=== PATIENT | female | born 1945 | race Caucasian/White ===

== ENCOUNTER 2016-09-10 10:33 | Emergency (ER) | payer MEDICARE, MEDICAID ==
[~2016-09-10] VITALS: Ht 157.5 cm; Wt 62.0 kg
[~2016-09-10 10:33] MED LIST: ASCO500C6 PO; CHOL100026 GT; DEXL60CA3 PO; DIATR MEGLU/DIATRIZOATE SOLN 30ML ONE; FERR-63 PO; FURO20TA4 PO; LACT10SO6 PO; MAGN400C PO; MEGE400O PO; MIRT15TA6 PO; SPIR25TA4 PO; ZINC MT
[2016-09-10 11:10] LABS: BASOPHILS % 0.7 % (0.0-2.0); EOSINOPHILS % 0.9 % (0.0-5.0); HEMATOCRIT. 47.2 % (36.0-48.0); HEMOGLOBIN. 16.3 g/dL (12.0-16.0); LYMPHOCYTES % 13.6 % (20.0-50.0); MEAN CORPUSCULAR HEMOGLOBIN 37.5 pg (28.0-32.0); MEAN CORPUSCULAR VOLUME 108.6 fL (81.0-99.0); MEAN PLATELET VOLUME 9.8 fl (7.4-10.4); MONOCYTES % 12.2 % (2.0-8.0); NEUTROPHILS % 72.6 % (40.0-76.0); PLATELET 144 x1000/uL (130-400); RED BLOOD CELL COUNT 4.35 mill/uL (4.2-5.4)
[2016-09-10 11:17] LABS: CHLORIDE 118 mEq/L (98-107)
[2016-09-10 11:19] LABS: INR 1.3; PROTHROMBIN TIME 13.4 sec
[2016-09-10 11:27] LABS: CARBON DIOXIDE 27 mEq/L (21-32)
[2016-09-10] MEDS ORDERED: SODIUM BICARBONATE 4% (2.4MEQ) 5ML VIAL IV ONE (13:49)
[2016-09-10] MEDS ORDERED: LIDOCAINE HCL 1% 20ML VIAL (Pyxis) INJ ONE (13:49)
[2016-09-10 18:54] VITALS: BP 147/82
== END 2016-09-10 20:15 | disposition home or self-care (01) ==
LOC: ER 13:14
DX: K94.23 Gastrostomy malfunction (principal); R03.0 Elevated blood-pressure reading, without diagnosis of hypertension; I69.320 Aphasia following cerebral infarction; I69.398 Other sequelae of cerebral infarction; M24.542 Contracture, left hand; J44.9 Chronic obstructive pulmonary disease, unspecified; Z79.899 Other long term (current) drug therapy; Z86.19 Personal history of other infectious and parasitic diseases
CPT/HCPCS: 36415; 36598; 49450; 80053; 85025; 85610; 99284; J3490; Q9963

== ENCOUNTER 2017-03-28 18:34 | Inpatient (IN) | payer MEDICARE, MEDICAID ==
[~2017-03-28] VITALS: Ht 162.6 cm; Wt 64.4 kg
[~2017-03-28 18:34] MED LIST changes: -CHOL100026 GT; +CHOL100044 GT; -DIATR MEGLU/DIATRIZOATE SOLN 30ML ONE; +ETOMIDATE 2MG/ML 10ML VIAL IV ONE; +SUCCINYLCHOLINE CHLORIDE 200MG/10ML VIAL IV ONE
[2017-03-28] MEDS ORDERED: IPRATROPIUM BROMIDE (0.02%) 0.5MG/2.5ML NEB HHN STA (18:37)
[2017-03-28] MEDS ORDERED: ALBUTEROL (0.083%) 2.5MG/3ML NEB HHN STA (18:37)
[2017-03-28] MEDS ORDERED: SODIUM CHLORIDE 0.9% 1,000 ML IV ONE (18:37)
[2017-03-28] MEDS ORDERED: AZITHROMYCIN 500 MG in DEXT 5% WATER 250 ML IV ONE (18:45)
[2017-03-28] MEDS ORDERED: CEFTRIAXONE 1 G PREMIX 50 ML IV ONE (18:45)
[2017-03-28 19:03] LABS: BG BASE EXCESS -0.8 mmol/L (-2.0-2.0); BG CARBOXYHEMOGLOBIN 1.2 % (0.5-1.5); BG DEOXYHEMOGLOBIN 2.7 % (0.0-5.0); BG FRACTION INSPIRED OXYGEN 100; BG HCO3 ACT 22.7 mmol/L (22.0-26.0); BG METHEMOGLOBIN 0.3 % (0.0-1.5); BG OXYGEN SATURATION 97.3 % (92.0-98.5); BG OXYHEMOGLOBIN 95.8 % (94.0-97.0); BG PCO2 34.2 mmHg (35.0-45.0); BG PH 7.439 (7.350-7.450); BG PO2 93.7 mmHg (75.0-100.0); BG SAMPLE SITE RIGHT RADIAL; BG TOTAL HEMOGLOBIN 14.3 g/dL (12.0-18.0); BG VENT MODE MASK - NRB
[2017-03-28] MEDS ORDERED: SUCCINYLCHOLINE CHLORIDE 200MG/10ML VIAL IV ONE (19:15)
[2017-03-28] MEDS ORDERED: ETOMIDATE 2MG/ML 10ML VIAL IV ONE (19:15)
[2017-03-28] MEDS ORDERED: PROPOFOL 10MG/ML 100ML 100 ML IV ONE (19:15)
[2017-03-28 19:22] LABS: HEMATOCRIT. 41.7 % (36.0-48.0); HEMOGLOBIN. 13.8 g/dL (12.0-16.0); MEAN CORPUSCULAR HEMOGLOBIN 42.5 pg (28.0-32.0); MEAN CORPUSCULAR VOLUME 128.6 fL (81.0-99.0); MEAN PLATELET VOLUME 10.1 fl (7.4-10.4); PLATELET 122 x1000/uL (130-400); RED BLOOD CELL COUNT 3.24 mill/uL (4.2-5.4); RED CELL DISTRIBUTION WIDTH 15.1 % (11.6-14.6)
[2017-03-28 19:25] LABS: INR 1.7; PROTHROMBIN TIME 17.8 sec (9.4-11.6)
[2017-03-28 19:34] LABS: CARBON DIOXIDE 24 mEq/L (21-32); CHLORIDE 108 mEq/L (98-107); ETHANOL BLOOD < 10 mg/dL
[2017-03-28] MEDS ORDERED: ASPIRIN 300MG SUPP PR ONE (19:45)
[2017-03-28] MEDS ORDERED: SODIUM CHLORIDE 0.9% 1000ML BAG (SEPSIS BOLUS) IV ONE (19:45)
[2017-03-28 20:38] LABS: BG BASE EXCESS -4.7 mmol/L (-2.0-2.0); BG CARBOXYHEMOGLOBIN 0.3 % (0.5-1.5); BG DEOXYHEMOGLOBIN 0.7 % (0.0-5.0); BG FRACTION INSPIRED OXYGEN 100; BG HCO3 ACT 20.9 mmol/L (22.0-26.0); BG METHEMOGLOBIN 0.7 % (0.0-1.5); BG OXYGEN SATURATION 99.3 % (92.0-98.5); BG OXYHEMOGLOBIN 98.3 % (94.0-97.0); BG PCO2 40.8 mmHg (35.0-45.0); BG PH 7.328 (7.350-7.450); BG PO2 259.2 mmHg (75.0-100.0); BG SAMPLE SITE RIGHT FEMORAL; BG TIDAL VOLUME(mL) 400 mL; BG TOTAL HEMOGLOBIN 11.8 g/dL (12.0-18.0); BG VENT MODE VENT - A/C; BG VENT RATE 12 set
[2017-03-28 20:55] LABS: CLARITY URINE CLEAR (CLEAR); COLOR URINE DARK YELLOW (YELLOW); KETONES URINE NEGATIVE (NEGATIVE); LEUKOCYTE ESTERASE URINE TRACE (NEGATIVE); NITRITE URINE POSITIVE (NEGATIVE); OCCULT BLOOD URINE TRACE (NEGATIVE); PH URINE 5.5 (4.5-8.0); PROTEIN URINE NEGATIVE (NEGATIVE); SPECIFIC GRAVITY URINE 1.027 (1.005-1.030)
[2017-03-28 21:03] LABS: PLATELET ESTIMATE SLIGHTLY DECREASED
[2017-03-28 21:13] LABS: *AMPHETAMINES SCREEN URINE NEGATIVE (NEGATIVE); *BARBITURATES SCREEN URINE NEGATIVE (NEGATIVE); *BENZODIAZEPINES SCREEN URINE NEGATIVE (NEGATIVE); *COCAINE SCREEN URINE NEGATIVE (NEGATIVE); CANNABINOID URINE SCREEN NEGATIVE (NEGATIVE); METHADONE URINE SCREEN NEGATIVE (NEGATIVE); OPIATES URINE SCREEN NEGATIVE (NEGATIVE); PHENCYCLIDINE URINE SCREEN NEGATIVE (NEGATIVE)
[2017-03-28 23:15] VITALS: BP 88/62
[2017-03-29] VITALS (62 sets, daily range): BP systolic 39–191; BP diastolic 21–111
[2017-03-29] MEDS ORDERED: ONDANSETRON HCL 4MG/2ML VIAL IV PRN (00:15)
[2017-03-29] MEDS: DEXT 5%/0.9% NACL 1,000 ML IV SCH ×2 (00:32→17:13)
[2017-03-29] MEDS: PIPERACILLIN/TAZ 3.375G PREMIX 50 ML IV SCH ×5 (01:07→23:32)
[2017-03-29] MEDS ORDERED: SODIUM CHLORIDE 0.9% 500 ML IV SCH (02:45)
[2017-03-29] MEDS ORDERED: PIPERACILLIN/TAZOBACTAM 2.25 G in DEXTROSE 5% WATER 50 ML IV SCH (06:00)
[2017-03-29 06:20] LABS: HEMATOCRIT. 37.9 % (36.0-48.0); HEMOGLOBIN. 12.4 g/dL (12.0-16.0); MEAN CORPUSCULAR HEMOGLOBIN 43.3 pg (28.0-32.0); MEAN CORPUSCULAR VOLUME 131.9 fL (81.0-99.0); PLATELET 106 x1000/uL (130-400); RED BLOOD CELL COUNT 2.87 mill/uL (4.2-5.4); RED CELL DISTRIBUTION WIDTH 15.3 % (11.6-14.6)
[2017-03-29] MEDS: NOREPINEPHRINE 4 MG in DEXT 5% WATER 246 ML IV PRN (06:46)
[2017-03-29 08:05] LABS: BG BASE EXCESS -5.4 mmol/L (-2.0-2.0); BG CARBOXYHEMOGLOBIN 1.4 % (0.5-1.5); BG DEOXYHEMOGLOBIN 1.6 % (0.0-5.0); BG FRACTION INSPIRED OXYGEN 50; BG HCO3 ACT 18.2 mmol/L (22.0-26.0); BG METHEMOGLOBIN 0.3 % (0.0-1.5); BG OXYGEN SATURATION 98.4 % (92.0-98.5); BG OXYHEMOGLOBIN 96.7 % (94.0-97.0); BG PCO2 30.4 mmHg (35.0-45.0); BG PH 7.395 (7.350-7.450); BG PO2 105.4 mmHg (75.0-100.0); BG SAMPLE SITE RIGHT RADIAL; BG TIDAL VOLUME(mL) 400 mL; BG TOTAL HEMOGLOBIN 14.6 g/dL (12.0-18.0); BG VENT MODE VENT - A/C; BG VENT RATE 12 set
[2017-03-29] MEDS ORDERED: MAGNESIUM OXIDE 400MG TABLET PO SCH (09:00)
[2017-03-29 13:43] LABS: PLATELET ESTIMATE SLIGHTLY DECREASED
[2017-03-29 14:12] LABS: PHOSPHORUS 2.6 mg/dL (2.5-4.9)
[2017-03-30] VITALS (99 sets, daily range): BP systolic 71–145; BP diastolic 34–105
[2017-03-30] MEDS: IPRATROPIUM/ALBUTEROL 0.5-3(2.5)MG/3ML NEB HHN SCH ×6 (00:12→20:25)
[2017-03-30] MEDS: PIPERACILLIN/TAZ 3.375G PREMIX 50 ML IV SCH ×2 (05:25→12:37)
[2017-03-30] MEDS: DEXT 5%/0.9% NACL 1,000 ML IV SCH (05:26)
[2017-03-30 05:40] LABS: HEMATOCRIT. 29.3 % (36.0-48.0); HEMOGLOBIN. 9.8 g/dL (12.0-16.0); MEAN CORPUSCULAR HEMOGLOBIN 43.8 pg (28.0-32.0); MEAN PLATELET VOLUME 9.2 fl (7.4-10.4); PLATELET 87 x1000/uL (130-400); RED BLOOD CELL COUNT 2.24 mill/uL (4.2-5.4); RED CELL DISTRIBUTION WIDTH 15.4 % (11.6-14.6)
[2017-03-30 06:20] LABS: CARBON DIOXIDE 23 mEq/L (21-32); CHLORIDE 122 mEq/L (98-107); CREATINE KINASE 275 IU/L (26-192)
[2017-03-30 07:54] LABS: PLATELET ESTIMATE DECREASED
[2017-03-30 08:14] LABS: BG BASE EXCESS -2.4 mmol/L (-2.0-2.0); BG CARBOXYHEMOGLOBIN 0.1 % (0.5-1.5); BG DEOXYHEMOGLOBIN 2.7 % (0.0-5.0); BG FRACTION INSPIRED OXYGEN 50; BG HCO3 ACT 20.8 mmol/L (22.0-26.0); BG METHEMOGLOBIN 0.3 % (0.0-1.5); BG OXYGEN SATURATION 97.3 % (92.0-98.5); BG OXYHEMOGLOBIN 96.9 % (94.0-97.0); BG PCO2 30.2 mmHg (35.0-45.0); BG PH 7.456 (7.350-7.450); BG PO2 91.9 mmHg (75.0-100.0); BG SAMPLE SITE RIGHT RADIAL; BG TIDAL VOLUME(mL) 400 mL; BG TOTAL HEMOGLOBIN 9.6 g/dL (12.0-18.0); BG VENT MODE VENT - A/C; BG VENT RATE 12 set
[2017-03-30] MEDS ORDERED: DEXTROSE 5% WATER 1,000 ML IV SCH (09:20)
[2017-03-30] MEDS ORDERED: ONDANSETRON HCL 4MG/2ML VIAL IV PRN (13:15)
[2017-03-30] MEDS: PANTOPRAZOLE SODIUM 40 MG/VIAL IV SCH (13:57)
[2017-03-30] MEDS: CEFEPIME 1,000 MG in DEXTROSE 5% WATER 50 ML IV SCH (15:37)
[2017-03-30 15:56] LABS: HEMATOCRIT 29.8 % (36.0-48.0); HEMOGLOBIN 9.9 g/dL (12.0-16.0)
[2017-03-30] MEDS ORDERED: VANCOMYCIN 1 G PREMIX 200 ML IV NR (16:00)
[2017-03-30 16:04] LABS: AMMONIA 36 uMol/L (<32)
[2017-03-30] MEDS: NOREPINEPHRINE 4 MG in DEXT 5% WATER 246 ML IV PRN (19:27)
[2017-03-30] MEDS: METRONIDAZOLE 500MG TABLET PO SCH (21:37)
[2017-03-31] VITALS (105 sets, daily range): BP systolic 72–139; BP diastolic 46–105
[2017-03-31] MEDS: IPRATROPIUM/ALBUTEROL 0.5-3(2.5)MG/3ML NEB HHN SCH ×6 (00:26→20:39)
[2017-03-31] MEDS: CEFEPIME 1,000 MG in DEXTROSE 5% WATER 50 ML IV SCH ×2 (02:21→15:01)
[2017-03-31] MEDS: NOREPINEPHRINE 4 MG in DEXT 5% WATER 246 ML IV PRN ×3 (02:21→17:32)
[2017-03-31 05:38] LABS: HEMATOCRIT. 29.5 % (36.0-48.0); HEMOGLOBIN. 9.8 g/dL (12.0-16.0); MEAN CORPUSCULAR HEMOGLOBIN 43.7 pg (28.0-32.0); MEAN CORPUSCULAR VOLUME 130.9 fL (81.0-99.0); MEAN PLATELET VOLUME 8.5 fl (7.4-10.4); PLATELET 109 x1000/uL (130-400); RED BLOOD CELL COUNT 2.25 mill/uL (4.2-5.4); RED CELL DISTRIBUTION WIDTH 15.5 % (11.6-14.6)
[2017-03-31 05:51] LABS: INR 2.5; PROTHROMBIN TIME 26.1 sec (9.4-11.6)
[2017-03-31 06:17] LABS: CARBON DIOXIDE 16 mEq/L (21-32); CHLORIDE 110 mEq/L (98-107)
[2017-03-31] MEDS ORDERED: POTASSIUM CHLORIDE 20MEQ TABLET SR PO SCH (07:45)
[2017-03-31] MEDS ORDERED: POTASSIUM CHLORIDE 20MEQ/PACKET PEG SCH (08:30)
[2017-03-31] MEDS: CITRIC ACID/SODIUM CITRATE SOLN 30ML UDC PO SCH ×3 (09:37→18:06)
[2017-03-31] MEDS: PANTOPRAZOLE SODIUM 40 MG/VIAL IV SCH (09:37)
[2017-03-31] MEDS: METRONIDAZOLE 500MG TABLET PO SCH ×2 (09:37→21:45)
[2017-03-31 09:40] LABS: BG BASE EXCESS -3.6 mmol/L (-2.0-2.0); BG CARBOXYHEMOGLOBIN 0.3 % (0.5-1.5); BG DEOXYHEMOGLOBIN 2.3 % (0.0-5.0); BG FRACTION INSPIRED OXYGEN 50; BG HCO3 ACT 19.1 mmol/L (22.0-26.0); BG METHEMOGLOBIN 0.2 % (0.0-1.5); BG OXYGEN SATURATION 97.7 % (92.0-98.5); BG OXYHEMOGLOBIN 97.2 % (94.0-97.0); BG PCO2 27.2 mmHg (35.0-45.0); BG PH 7.465 (7.350-7.450); BG PO2 99.2 mmHg (75.0-100.0); BG SAMPLE SITE LEFT BRACHIAL; BG TIDAL VOLUME(mL) 400 mL; BG TOTAL HEMOGLOBIN 10.5 g/dL (12.0-18.0); BG VENT MODE VENT - A/C; BG VENT RATE 10 set
[2017-03-31] MEDS ORDERED: VANCOMYCIN 1250MG in DEXTROSE 5% WATER 250ML IV SCH (10:00)
[2017-03-31 10:24] LABS: AMMONIA 37 uMol/L (<32)
[2017-03-31 11:21] LABS: PLATELET ESTIMATE SLIGHTLY DECREASED
[2017-03-31] MEDS ORDERED: LACTULOSE 20G/30ML UDC PO NR (13:00)
[2017-03-31] MEDS ORDERED: PHYTONADIONE 10MG/ML AMP SUBCUT NR (14:00)
[2017-03-31] MEDS ORDERED: SODIUM CHLORIDE 10% FOR INH 15ML VIAL NEB INH NR (16:00)
[2017-03-31 17:35] LABS: PARTIAL THROMBOPLASTIN TIME 39.4 sec (23.4-31.0)
[2017-04-01] VITALS (51 sets, daily range): BP systolic 86–140; BP diastolic 25–87
[2017-04-01] MEDS ORDERED: VANCOMYCIN 1250MG in DEXTROSE 5% WATER 250ML IV SCH ×2
[2017-04-01] MEDS: IPRATROPIUM/ALBUTEROL 0.5-3(2.5)MG/3ML NEB HHN SCH ×6 (00:04→20:49)
[2017-04-01] MEDS: CEFEPIME 1,000 MG in DEXTROSE 5% WATER 50 ML IV SCH ×2 (02:38→17:43)
[2017-04-01] MEDS: NOREPINEPHRINE 4 MG in DEXT 5% WATER 246 ML IV PRN (02:39)
[2017-04-01 05:20] LABS: HEMATOCRIT. 23.8 % (36.0-48.0); HEMOGLOBIN. 8.1 g/dL (12.0-16.0); MEAN CORPUSCULAR HEMOGLOBIN 44.1 pg (28.0-32.0); MEAN CORPUSCULAR VOLUME 129.5 fL (81.0-99.0); PLATELET 68 x1000/uL (130-400); RED BLOOD CELL COUNT 1.84 mill/uL (4.2-5.4); RED CELL DISTRIBUTION WIDTH 15.5 % (11.6-14.6)
[2017-04-01 05:36] LABS: INR 1.6; PARTIAL THROMBOPLASTIN TIME 31.1 sec (23.4-31.0); PROTHROMBIN TIME 16.4 sec (9.4-11.6)
[2017-04-01 06:05] LABS: CARBON DIOXIDE 21 mEq/L (21-32); CHLORIDE 109 mEq/L (98-107); PHOSPHORUS 1.2 mg/dL (2.5-4.9)
[2017-04-01] MEDS ORDERED: POTASSIUM CHLORIDE 20MEQ TABLET SR PO NR (07:50)
[2017-04-01 08:13] LABS: BG BASE EXCESS -2.2 mmol/L (-2.0-2.0); BG CARBOXYHEMOGLOBIN 0.3 % (0.5-1.5); BG DEOXYHEMOGLOBIN 2.5 % (0.0-5.0); BG FRACTION INSPIRED OXYGEN 40; BG HCO3 ACT 21.2 mmol/L (22.0-26.0); BG METHEMOGLOBIN 0.5 % (0.0-1.5); BG OXYGEN SATURATION 97.5 % (92.0-98.5); BG OXYHEMOGLOBIN 96.7 % (94.0-97.0); BG PCO2 31.1 mmHg (35.0-45.0); BG PH 7.451 (7.350-7.450); BG PO2 101.4 mmHg (75.0-100.0); BG PRESSURE SUPPORT 12; BG SAMPLE SITE LEFT BRACHIAL; BG TIDAL VOLUME(mL) 400 mL; BG TOTAL HEMOGLOBIN 9.3 g/dL (12.0-18.0); BG VENT MODE VENT - SIMV; BG VENT RATE 10 set
[2017-04-01] MEDS ORDERED: MAGNESIUM 2 G PREMIX 50 ML IV NR (09:00)
[2017-04-01] MEDS: METRONIDAZOLE 500MG TABLET PO SCH ×2 (09:45→20:22)
[2017-04-01] MEDS: PANTOPRAZOLE SODIUM 40 MG/VIAL IV SCH (09:45)
[2017-04-01] MEDS: CITRIC ACID/SODIUM CITRATE SOLN 30ML UDC PO SCH ×3 (09:45→17:43)
[2017-04-01] MEDS ORDERED: POTASSIUM PHOS,M-BASIC-D-BASIC 20 MMOL in DEXT 5% WATER 243.3333 ML IV NR (10:00)
[2017-04-01] MEDS: NOREPINEPHRINE 8 MG in DEXT 5% WATER 242 ML IV PRN (12:55)
[2017-04-01] MEDS ORDERED: FUROSEMIDE 40MG/4ML VIAL IVP NR (14:45)
[2017-04-01] MEDS ORDERED: METHYLPREDNISOLONE SOD SUCC 40 MG/ML VIAL IV NR (14:45)
[2017-04-01 15:03] LABS: PLATELET ESTIMATE DECREASED
[2017-04-01] MEDS ORDERED: VANCOMYCIN 750 MG PREMIX 150 ML IV SCH (18:00)
[2017-04-01] MEDS: VANCOMYCIN 750 MG PREMIX 150 ML IV SCH (20:49)
[2017-04-02] VITALS (82 sets, daily range): BP systolic 77–166; BP diastolic 47–89
[2017-04-02] MEDS: IPRATROPIUM/ALBUTEROL 0.5-3(2.5)MG/3ML NEB HHN SCH ×6 (00:25→20:20)
[2017-04-02] MEDS: NOREPINEPHRINE 8 MG in DEXT 5% WATER 242 ML IV PRN ×2 (00:25→17:54)
[2017-04-02] MEDS: CEFEPIME 1,000 MG in DEXTROSE 5% WATER 50 ML IV SCH ×2 (05:07→15:35)
[2017-04-02 05:51] LABS: HEMATOCRIT. 25.2 % (36.0-48.0); HEMOGLOBIN. 8.6 g/dL (12.0-16.0); MEAN CORPUSCULAR HEMOGLOBIN 43.7 pg (28.0-32.0); MEAN CORPUSCULAR VOLUME 128.6 fL (81.0-99.0); MEAN PLATELET VOLUME 9.7 fl (7.4-10.4); PLATELET 159 x1000/uL (130-400); RED BLOOD CELL COUNT 1.96 mill/uL (4.2-5.4); RED CELL DISTRIBUTION WIDTH 15.8 % (11.6-14.6)
[2017-04-02 07:29] LABS: AMMONIA 82 uMol/L (<32)
[2017-04-02] MEDS: METRONIDAZOLE 500MG TABLET PO SCH ×2 (08:40→21:26)
[2017-04-02] MEDS: CITRIC ACID/SODIUM CITRATE SOLN 30ML UDC PO SCH ×3 (08:40→17:13)
[2017-04-02] MEDS: PANTOPRAZOLE SODIUM 40 MG/VIAL IV SCH (08:40)
[2017-04-02] MEDS: LACTULOSE 20G/30ML UDC PO SCH ×3 (08:40→21:27)
[2017-04-02 11:08] LABS: CHLORIDE 108 mEq/L (98-107)
[2017-04-02 11:17] LABS: CARBON DIOXIDE 20 mEq/L (21-32); PHOSPHORUS 2.3 mg/dL (2.5-4.9)
[2017-04-02 11:43] LABS: BG BASE EXCESS 0.5 mmol/L (-2.0-2.0); BG CARBOXYHEMOGLOBIN 0.3 % (0.5-1.5); BG DEOXYHEMOGLOBIN 3.7 % (0.0-5.0); BG FRACTION INSPIRED OXYGEN 40; BG HCO3 ACT 24.4 mmol/L (22.0-26.0); BG METHEMOGLOBIN 0.1 % (0.0-1.5); BG OXYGEN SATURATION 96.3 % (92.0-98.5); BG OXYHEMOGLOBIN 95.9 % (94.0-97.0); BG PCO2 36.3 mmHg (35.0-45.0); BG PH 7.446 (7.350-7.450); BG PO2 85.7 mmHg (75.0-100.0); BG PRESSURE SUPPORT 8; BG SAMPLE SITE LEFT RADIAL; BG TIDAL VOLUME(mL) 400 mL; BG TOTAL HEMOGLOBIN 8.9 g/dL (12.0-18.0); BG VENT MODE VENT - SIMV; BG VENT RATE 6 set
[2017-04-02] MEDS ORDERED: LACTULOSE 20G/30ML UDC PO SCH (14:00)
[2017-04-02] MEDS: VANCOMYCIN 750 MG PREMIX 150 ML IV SCH (14:19)
[2017-04-02 17:05] LABS: PLATELET ESTIMATE NORMAL
[2017-04-02] MEDS ORDERED: SODIUM PHOS,M-BASIC-D-BASIC 15 MM in DEXT 5% WATER 245 ML IV SCH (19:30)
[2017-04-03] VITALS (91 sets, daily range): BP systolic 73–142; BP diastolic 32–93
[2017-04-03] MEDS: CEFEPIME 1,000 MG in DEXTROSE 5% WATER 50 ML IV SCH ×2 (02:48→14:30)
[2017-04-03] MEDS: IPRATROPIUM/ALBUTEROL 0.5-3(2.5)MG/3ML NEB HHN SCH ×4 (03:10→20:55)
[2017-04-03] MEDS: LACTULOSE 20G/30ML UDC PO SCH ×3 (05:53→22:16)
[2017-04-03 05:54] LABS: HEMATOCRIT. 26.5 % (36.0-48.0); HEMOGLOBIN. 8.9 g/dL (12.0-16.0); MEAN CORPUSCULAR HEMOGLOBIN 43.1 pg (28.0-32.0); MEAN CORPUSCULAR VOLUME 129.2 fL (81.0-99.0); MEAN PLATELET VOLUME 9.6 fl (7.4-10.4); PLATELET 146 x1000/uL (130-400); RED BLOOD CELL COUNT 2.05 mill/uL (4.2-5.4); RED CELL DISTRIBUTION WIDTH 16.6 % (11.6-14.6)
[2017-04-03 06:20] LABS: CARBON DIOXIDE 26 mEq/L (21-32); CHLORIDE 107 mEq/L (98-107)
[2017-04-03 07:14] LABS: AMMONIA 61 uMol/L (<32)
[2017-04-03] MEDS ORDERED: POTASSIUM CHLORIDE 20MEQ TABLET SR PO SCH (07:15)
[2017-04-03 09:11] LABS: IMMUNOGLOBULIN A 666 mg/dL (87-352); IMMUNOGLOBULIN G 3295 mg/dL (700-1600); IMMUNOGLOBULIN M 223 mg/dL (26-217)
[2017-04-03 09:15] LABS: TOTAL IRON BINDING CAPACITY 154 ug/dL (250-450)
[2017-04-03] MEDS: PANTOPRAZOLE SODIUM 40 MG/VIAL IV SCH (09:19)
[2017-04-03] MEDS: METRONIDAZOLE 500MG TABLET PO SCH ×2 (09:19→20:33)
[2017-04-03] MEDS: VANCOMYCIN 750 MG PREMIX 150 ML IV SCH (09:19)
[2017-04-03 11:25] LABS: BG BASE EXCESS 1.8 mmol/L (-2.0-2.0); BG CARBOXYHEMOGLOBIN 0.3 % (0.5-1.5); BG DEOXYHEMOGLOBIN 2.9 % (0.0-5.0); BG FRACTION INSPIRED OXYGEN 40; BG HCO3 ACT 24.8 mmol/L (22.0-26.0); BG METHEMOGLOBIN 0.3 % (0.0-1.5); BG OXYGEN SATURATION 97.1 % (92.0-98.5); BG OXYHEMOGLOBIN 96.5 % (94.0-97.0); BG PCO2 32.4 mmHg (35.0-45.0); BG PH 7.501 (7.350-7.450); BG PO2 85.1 mmHg (75.0-100.0); BG PRESSURE SUPPORT 8; BG SAMPLE SITE LEFT RADIAL; BG TIDAL VOLUME(mL) 400 mL; BG VENT MODE VENT - SIMV; BG VENT RATE 6 set
[2017-04-03 13:22] LABS: FERRITIN 1043 ng/mL (10-291)
[2017-04-03 13:45] LABS: PLATELET ESTIMATE NORMAL
[2017-04-03 14:34] LABS: VITAMIN B12 SERUM > 2000.0 pg/mL (211-911)
[2017-04-03] MEDS: NOREPINEPHRINE 8 MG in DEXT 5% WATER 242 ML IV PRN (20:34)
[2017-04-04] VITALS (95 sets, daily range): BP systolic 71–140; BP diastolic 47–92
[2017-04-04] MEDS: IPRATROPIUM/ALBUTEROL 0.5-3(2.5)MG/3ML NEB HHN SCH ×6 (00:28→19:52)
[2017-04-04] MEDS: VANCOMYCIN 750 MG PREMIX 150 ML IV SCH (01:38)
[2017-04-04] MEDS: CEFEPIME 1,000 MG in DEXTROSE 5% WATER 50 ML IV SCH ×2 (03:32→15:24)
[2017-04-04] MEDS: LACTULOSE 20G/30ML UDC PO SCH ×3 (05:14→21:02)
[2017-04-04 05:34] LABS: HEMOGLOBIN. 8.5 g/dL (12.0-16.0); MEAN CORPUSCULAR HEMOGLOBIN 42.1 pg (28.0-32.0); MEAN CORPUSCULAR VOLUME 129.5 fL (81.0-99.0); MEAN PLATELET VOLUME 9.5 fl (7.4-10.4); PLATELET 108 x1000/uL (130-400); RED BLOOD CELL COUNT 2.01 mill/uL (4.2-5.4); RED CELL DISTRIBUTION WIDTH 16.5 % (11.6-14.6)
[2017-04-04 05:44] LABS: AMMONIA 37 uMol/L (<32)
[2017-04-04 05:47] LABS: CARBON DIOXIDE 27 mEq/L (21-32); CHLORIDE 112 mEq/L (98-107)
[2017-04-04 08:08] LABS: PLATELET ESTIMATE DECREASED
[2017-04-04] MEDS: PANTOPRAZOLE SODIUM 40 MG/VIAL IV SCH (08:36)
[2017-04-04] MEDS: ACETAMINOPHEN 650MG/20.3ML UDC PO PRN ×2 (08:36→17:16)
[2017-04-04] MEDS: METRONIDAZOLE 500MG TABLET PO SCH ×2 (08:36→21:02)
[2017-04-04 12:34] LABS: BG BASE EXCESS -0.6 mmol/L (-2.0-2.0); BG CARBOXYHEMOGLOBIN 0.3 % (0.5-1.5); BG DEOXYHEMOGLOBIN 3.1 % (0.0-5.0); BG FRACTION INSPIRED OXYGEN 40; BG HCO3 ACT 23.7 mmol/L (22.0-26.0); BG METHEMOGLOBIN 0.3 % (0.0-1.5); BG OXYGEN SATURATION 96.9 % (92.0-98.5); BG OXYHEMOGLOBIN 96.3 % (94.0-97.0); BG PCO2 37.5 mmHg (35.0-45.0); BG PH 7.418 (7.350-7.450); BG PO2 90.5 mmHg (75.0-100.0); BG PRESSURE SUPPORT 8; BG SAMPLE SITE RIGHT RADIAL; BG TOTAL HEMOGLOBIN 9.9 g/dL (12.0-18.0); BG VENT MODE VENT - CPAP
[2017-04-04] MEDS: RACEPINEPHRINE 2.25% 0.5ML NEB VIAL HHN PRN ×3 (13:34→19:52)
[2017-04-04] MEDS: NOREPINEPHRINE 8 MG in DEXT 5% WATER 242 ML IV PRN (17:16)
[2017-04-04] MEDS: TRAMADOL 50MG TABLET PO PRN (22:45)
[2017-04-05] VITALS (90 sets, daily range): BP systolic 90–141; BP diastolic 58–101
[2017-04-05] MEDS: RACEPINEPHRINE 2.25% 0.5ML NEB VIAL HHN PRN (00:12)
[2017-04-05] MEDS: IPRATROPIUM/ALBUTEROL 0.5-3(2.5)MG/3ML NEB HHN SCH ×6 (00:12→20:05)
[2017-04-05] MEDS: CEFEPIME 1,000 MG in DEXTROSE 5% WATER 50 ML IV SCH ×2 (02:31→16:18)
[2017-04-05] MEDS: MORPHINE SULFATE 2 MG/ML CPJ (NOT FOR IM USE) IV PRN ×2 (03:02→20:48)
[2017-04-05] MEDS: LACTULOSE 20G/30ML UDC PO SCH (05:48)
[2017-04-05] MEDS: TRAMADOL 50MG TABLET PO PRN (05:49)
[2017-04-05] MEDS: METOCLOPRAMIDE HCL 10MG/2ML VIAL IV SCH ×3 (06:09→19:32)
[2017-04-05] MEDS: VANCOMYCIN 750 MG PREMIX 150 ML IV SCH (06:09)
[2017-04-05 06:44] LABS: HEMATOCRIT. 26.8 % (36.0-48.0); HEMOGLOBIN. 8.6 g/dL (12.0-16.0); MEAN CORPUSCULAR HEMOGLOBIN 41.4 pg (28.0-32.0); MEAN CORPUSCULAR VOLUME 129.3 fL (81.0-99.0); MEAN PLATELET VOLUME 9.8 fl (7.4-10.4); PLATELET 90 x1000/uL (130-400); RED BLOOD CELL COUNT 2.07 mill/uL (4.2-5.4); RED CELL DISTRIBUTION WIDTH 15.9 % (11.6-14.6)
[2017-04-05 08:41] LABS: AMMONIA 64 uMol/L (<32)
[2017-04-05 09:02] LABS: PLATELET ESTIMATE DECREASED
[2017-04-05] MEDS: PANTOPRAZOLE SODIUM 40 MG/VIAL IV SCH (09:35)
[2017-04-05] MEDS: METRONIDAZOLE 500MG TABLET PO SCH ×2 (09:52→20:33)
[2017-04-05] MEDS ORDERED: DIATR MEGLU/DIATRIZOATE SOLN 30ML PO SCH (11:00)
[2017-04-05] MEDS ORDERED: POTASSIUM CHLORIDE 20MEQ/PACKET PO NR (11:15)
[2017-04-05] MEDS: NOREPINEPHRINE 8 MG in DEXT 5% WATER 242 ML IV PRN (13:34)
[2017-04-05] MEDS ORDERED: LACTULOSE 20G/30ML UDC PO SCH (14:00)
[2017-04-05 15:17] LABS: PHOSPHORUS 1.5 mg/dL (2.5-4.9)
[2017-04-05] MEDS: LACTULOSE 20G/30ML UDC NG SCH ×2 (16:18→20:34)
[2017-04-06] VITALS (91 sets, daily range): BP systolic 81–138; BP diastolic 50–87
[2017-04-06] MEDS: METOCLOPRAMIDE HCL 10MG/2ML VIAL IV SCH
[2017-04-06] MEDS: IPRATROPIUM/ALBUTEROL 0.5-3(2.5)MG/3ML NEB HHN SCH ×6 (00:10→20:13)
[2017-04-06] MEDS: CEFEPIME 1,000 MG in DEXTROSE 5% WATER 50 ML IV SCH (04:02)
[2017-04-06 05:51] LABS: HEMATOCRIT. 29.5 % (36.0-48.0); HEMOGLOBIN. 9.3 g/dL (12.0-16.0); MEAN CORPUSCULAR HEMOGLOBIN 41.6 pg (28.0-32.0); MEAN CORPUSCULAR VOLUME 132.3 fL (81.0-99.0); MEAN PLATELET VOLUME 9.9 fl (7.4-10.4); PLATELET 99 x1000/uL (130-400); RED BLOOD CELL COUNT 2.23 mill/uL (4.2-5.4)
[2017-04-06 06:51] LABS: AMMONIA 75 uMol/L (<32)
[2017-04-06 07:27] LABS: PLATELET ESTIMATE DECREASED
[2017-04-06] MEDS: DEXT 5%/0.45% NACL 1000ML 1,000 ML IV SCH (07:41)
[2017-04-06] MEDS: TRAMADOL 50MG TABLET PO PRN (08:05)
[2017-04-06] MEDS: METRONIDAZOLE 500MG TABLET PO SCH (08:11)
[2017-04-06] MEDS: PANTOPRAZOLE SODIUM 40 MG/VIAL IV SCH (08:11)
[2017-04-06] MEDS: VANCOMYCIN 750 MG PREMIX 150 ML IV SCH (10:28)
[2017-04-06 10:46] LABS: AMMONIA 36 uMol/L (<32)
[2017-04-06] MEDS: NOREPINEPHRINE 8 MG in DEXT 5% WATER 242 ML IV PRN (13:49)
[2017-04-06] MEDS ORDERED: METRONIDAZOLE 500MG TABLET PO SCH (18:00)
[2017-04-06 19:44] LABS: HEPATITIS B SURFACE ANTIGEN NEGATIVE
[2017-04-06 20:12] LABS: HEPATITIS B CORE AB IGM NEGATIVE
[2017-04-06 20:13] LABS: HEPATITIS A AB IGM NEGATIVE (NEGATIVE)
[2017-04-07] VITALS (96 sets, daily range): BP systolic 80–122; BP diastolic 45–73
[2017-04-07] MEDS: DEXT 5%/0.45% NACL 1000ML 1,000 ML IV SCH (00:10)
[2017-04-07] MEDS: IPRATROPIUM/ALBUTEROL 0.5-3(2.5)MG/3ML NEB HHN SCH ×6 (00:35→20:25)
[2017-04-07] MEDS ORDERED: WATER IV PRN (00:45)
[2017-04-07] MEDS ORDERED: NOREPINEPHRINE IV PRN (00:45)
[2017-04-07] MEDS ORDERED: DEXT 5% IV PRN (00:45)
[2017-04-07] MEDS ORDERED: CEFEPIME 1GM PREMIX 50 ML IV SCH (04:00)
[2017-04-07] MEDS: CEFEPIME 1,000 MG in DEXTROSE 5% WATER 50 ML IV SCH (04:51)
[2017-04-07 05:31] LABS: HEMOGLOBIN. 8.5 g/dL (12.0-16.0); MEAN CORPUSCULAR HEMOGLOBIN 41.5 pg (28.0-32.0); MEAN CORPUSCULAR VOLUME 131.9 fL (81.0-99.0); MEAN PLATELET VOLUME 10.5 fl (7.4-10.4); RED BLOOD CELL COUNT 2.05 mill/uL (4.2-5.4); RED CELL DISTRIBUTION WIDTH 15.4 % (11.6-14.6)
[2017-04-07 05:57] LABS: PLATELET 48 x1000/uL (130-400)
[2017-04-07 06:23] LABS: AMMONIA 79 uMol/L (<32)
[2017-04-07] MEDS: LACTULOSE 20G/30ML UDC NG SCH ×3 (06:40→22:21)
[2017-04-07] MEDS: VANCOMYCIN 750 MG PREMIX 150 ML IV SCH (06:41)
[2017-04-07] MEDS: METOCLOPRAMIDE HCL 10MG/2ML VIAL IV SCH ×4 (06:41→18:53)
[2017-04-07 07:29] LABS: PLATELET ESTIMATE MARKEDLY DECREASED
[2017-04-07] MEDS: PANTOPRAZOLE SODIUM 40 MG/VIAL IV SCH (09:02)
[2017-04-07 10:26] LABS: AMMONIA 41 uMol/L (<32)
[2017-04-07] MEDS: NOREPINEPHRINE 16 MG in DEXT 5% WATER 500 ML IV PRN (10:43)
[2017-04-07] MEDS ORDERED: ALBUMIN HUMAN 25GM/100ML (25%) IV NR (11:30)
[2017-04-07] MEDS: METRONIDAZOLE 250MG TABLET PO SCH ×2 (15:28→22:21)
[2017-04-07] MEDS: TRAMADOL 50MG TABLET PO PRN (22:21)
[2017-04-08] VITALS (98 sets, daily range): BP systolic 71–112; BP diastolic 41–74
[2017-04-08] MEDS: METOCLOPRAMIDE HCL 10MG/2ML VIAL IV SCH ×4 (00:29→17:20)
[2017-04-08] MEDS: IPRATROPIUM/ALBUTEROL 0.5-3(2.5)MG/3ML NEB HHN SCH ×6 (00:39→20:12)
[2017-04-08] MEDS: CEFEPIME 1,000 MG in DEXTROSE 5% WATER 50 ML IV SCH (03:42)
[2017-04-08] MEDS: METRONIDAZOLE 250MG TABLET PO SCH ×2 (05:44→13:36)
[2017-04-08] MEDS: LACTULOSE 20G/30ML UDC NG SCH ×3 (05:45→22:04)
[2017-04-08] MEDS: NOREPINEPHRINE 16 MG in DEXT 5% WATER 500 ML IV PRN (06:05)
[2017-04-08] MEDS ORDERED: SODIUM POLYSTYRENE SULFONATE 15 G/60 ML BOT PO NR (07:45)
[2017-04-08 07:55] LABS: BASOPHILS % 1.1 % (0.0-2.0); EOSINOPHILS % 1.8 % (0.0-5.0); HEMATOCRIT. 24.5 % (36.0-48.0); HEMOGLOBIN. 7.9 g/dL (12.0-16.0); LYMPHOCYTES % 9.3 % (20.0-50.0); MEAN CORPUSCULAR HEMOGLOBIN 41.5 pg (28.0-32.0); MEAN CORPUSCULAR VOLUME 129.1 fL (81.0-99.0); MEAN PLATELET VOLUME 10.3 fl (7.4-10.4); MONOCYTES % 11.9 % (2.0-8.0); NEUTROPHILS % 75.9 % (40.0-76.0); RED CELL DISTRIBUTION WIDTH 15.5 % (11.6-14.6)
[2017-04-08 08:04] LABS: PLATELET 42 x1000/uL (130-400)
[2017-04-08] MEDS: PANTOPRAZOLE SODIUM 40 MG/VIAL IV SCH (09:18)
[2017-04-08] MEDS: CITRIC ACID/SODIUM CITRATE SOLN 30ML UDC PO SCH ×3 (09:18→17:20)
[2017-04-09] VITALS (91 sets, daily range): BP systolic 89–144; BP diastolic 52–95
[2017-04-09] MEDS: IPRATROPIUM/ALBUTEROL 0.5-3(2.5)MG/3ML NEB HHN SCH ×5 (00:04→20:45)
[2017-04-09] MEDS: METOCLOPRAMIDE HCL 10MG/2ML VIAL IV SCH ×4 (00:15→17:26)
[2017-04-09 04:16] LABS: METHYLMALONIC ACID 180 nmol/L (0-378)
[2017-04-09 05:42] LABS: HEMATOCRIT. 27.4 % (36.0-48.0); HEMOGLOBIN. 8.8 g/dL (12.0-16.0); MEAN CORPUSCULAR HEMOGLOBIN 41.9 pg (28.0-32.0); MEAN CORPUSCULAR VOLUME 130.1 fL (81.0-99.0); MEAN PLATELET VOLUME 10.7 fl (7.4-10.4); RED BLOOD CELL COUNT 2.11 mill/uL (4.2-5.4); RED CELL DISTRIBUTION WIDTH 15.6 % (11.6-14.6)
[2017-04-09] MEDS: LACTULOSE 20G/30ML UDC NG SCH ×3 (05:52→23:11)
[2017-04-09 06:46] LABS: PLATELET 50 x1000/uL (130-400)
[2017-04-09 07:23] LABS: PLATELET ESTIMATE MARKEDLY DECREASED
[2017-04-09] MEDS: CITRIC ACID/SODIUM CITRATE SOLN 30ML UDC PO SCH ×3 (10:41→17:25)
[2017-04-09] MEDS: PANTOPRAZOLE SODIUM 40 MG/VIAL IV SCH (10:41)
[2017-04-09] MEDS: SODIUM CHLORIDE 0.45% 1,000 ML IV SCH (10:42)
[2017-04-09 13:48] LABS: AMMONIA 46 uMol/L (<32)
[2017-04-10] VITALS (31 sets, daily range): BP systolic 92–118; BP diastolic 59–80
[2017-04-10] MEDS: IPRATROPIUM/ALBUTEROL 0.5-3(2.5)MG/3ML NEB HHN SCH ×3 (00:35→08:32)
[2017-04-10] MEDS: METOCLOPRAMIDE HCL 10MG/2ML VIAL IV SCH ×2 (01:36→06:55)
[2017-04-10] MEDS: SODIUM CHLORIDE 0.45% 1,000 ML IV SCH (05:27)
[2017-04-10] MEDS: LACTULOSE 20G/30ML UDC NG SCH (06:55)
[2017-04-10] MEDS ORDERED: DEXTROSE 5% WATER 1,000 ML IV SCH (08:30)
== END 2017-04-10 09:30 | DRG 870 ==
LOC: ER 18:40 → MICUNO 20:22 → EDBEDREQTM 20:37 → EDBEDREQ 20:37 → EDBEDREQSVC 20:37 → ENRESERV 21:04
PROVIDERS: ADMIT Family Medicine Adult Medicine; ATTEND Family Medicine Adult Medicine
PROC: 5A1955Z Respiratory Ventilation, Greater than 96 Consecutive Hours (ICD-10-PCS; principal; 2017-03-28)
PROC: 0BH17EZ Insertion of Endotracheal Airway into Trachea, Via Natural or Artificial Opening (ICD-10-PCS; 2017-03-28)
PROC: 4A00X4Z Measurement of Central Nervous Electrical Activity, External Approach (ICD-10-PCS; 2017-03-28)
PROC: 02H633Z Insertion of Infusion Device into Right Atrium, Percutaneous Approach (ICD-10-PCS; 2017-03-29)
PROC: B244YZZ Ultrasonography of Right Heart using Other Contrast (ICD-10-PCS; 2017-03-29)
PROC: 30233L1 Transfusion of Nonautologous Fresh Plasma into Peripheral Vein, Percutaneous Approach (ICD-10-PCS; 2017-03-31)
PROC: 30233K1 Transfusion of Nonautologous Frozen Plasma into Peripheral Vein, Percutaneous Approach (ICD-10-PCS; 2017-03-31)
PROC: 30233R1 Transfusion of Nonautologous Platelets into Peripheral Vein, Percutaneous Approach (ICD-10-PCS; 2017-04-01)
DX: A41.9 Sepsis, unspecified organism (principal); J96.00 Acute respiratory failure, unspecified whether with hypoxia or hypercapnia; N17.0 Acute kidney failure with tubular necrosis; J69.0 Pneumonitis due to inhalation of food and vomit; E43 Unspecified severe protein-calorie malnutrition; G93.41 Metabolic encephalopathy; R65.21 Severe sepsis with septic shock; E72.20 Disorder of urea cycle metabolism, unspecified; K85.90 Acute pancreatitis without necrosis or infection, unspecified; D68.4 Acquired coagulation factor deficiency; E87.0 Hyperosmolality and hypernatremia; I13.2 Hypertensive heart and chronic kidney disease with heart failure and with stage 5 chronic kidney disease, or end stage renal disease; N39.0 Urinary tract infection, site not specified; R18.8 Other ascites; Z66 Do not resuscitate; D69.59 Other secondary thrombocytopenia; E83.51 Hypocalcemia; I50.9 Heart failure, unspecified; B18.2 Chronic viral hepatitis C; J44.9 Chronic obstructive pulmonary disease, unspecified; K74.60 Unspecified cirrhosis of liver; R04.0 Epistaxis; E87.6 Hypokalemia; D53.9 Nutritional anemia, unspecified; E83.39 Other disorders of phosphorus metabolism; E83.42 Hypomagnesemia; E87.5 Hyperkalemia; K80.20 Calculus of gallbladder without cholecystitis without obstruction; N20.0 Calculus of kidney; Z51.5 Encounter for palliative care; Z82.49 Family history of ischemic heart disease and other diseases of the circulatory system; Z86.718 Personal history of other venous thrombosis and embolism; I69.320 Aphasia following cerebral infarction; Z87.11 Personal history of peptic ulcer disease; Z88.8 Allergy status to other drugs, medicaments and biological substances; Z79.899 Other long term (current) drug therapy; Z68.24 Body mass index [BMI] 24.0-24.9, adult
CPT/HCPCS: 31500; 36415; 36569; 36600; 51702; 70450; 70551; 71010; 74176; 76700; 76770; 76937; 80048; 80053; 80076; 80202; 80305; 81001; 82105; 82140; 82248; 82375; 82550; 82553; 82607; 82728; 82746; 82784; 82805; 83070; 83540; 83550; 83605; 83615; 83690; 83735; 83880; 83921; 84100; 84295; 84443; 84478; 84484; 85014; 85018; 85025; 85384; 85610; 85730; 86334; 86705; 86709; 86803; 86850; 86900; 86927; 87040; 87070; 87077; 87086; 87106; 87186; 87205; 87340; 93005; 93306; 93970; 94002; 94003; 94640; 96365; 96375; 99291; A6261; C1725; C9113; G0482; J0330; J0456; J0692; J0696; J1940; J2270; J2405; J2543; J2704; J2765; J2920; J3370; J3430; J3475; J3490; J7030; J7040; J7042; J7060; J7070; J7131; J7611; J7620; P9017; P9034; P9047; Q9963; A4315